=== PATIENT | female | born 1960 | race African-American/Black ===

== ENCOUNTER 2019-03-07 10:05 | Emergency (ER) | payer SELFPAY ==
[~2019-03-07] VITALS: Ht 165.1 cm; Wt 63.0 kg
[2019-03-07] MEDS ORDERED: MIDAZOLAM HCL 2 MG/2 ML VIAL IM ONE ×2 (12:15→16:15)
[2019-03-07] MEDS ORDERED: OLANZAPINE 10 MG/VIAL IM ONE (15:15)
[2019-03-07 17:39] LABS: BASOPHILS % 0.4 % (0.0-2.0); EOSINOPHILS % 0.1 % (0.0-5.0); HEMATOCRIT. 39.6 % (36.0-48.0); HEMOGLOBIN. 13.2 g/dL (12.0-16.0); MEAN CORPUSCULAR VOLUME 78.2 fL (81.0-99.0); MEAN PLATELET VOLUME 8.7 fl (7.4-10.4); MONOCYTES % 9.3 % (2.0-8.0); NEUTROPHILS % 76.2 % (40.0-76.0); PLATELET 285 x1000/uL (130-400); RED BLOOD CELL COUNT 5.07 mill/uL (4.2-5.4); RED CELL DISTRIBUTION WIDTH 13.3 % (11.6-14.6)
[2019-03-07 17:44] LABS: CHLORIDE 108 mEq/L (98-107)
[2019-03-07 17:50] LABS: ETHANOL BLOOD < 10 mg/dL
[2019-03-07 20:38] LABS: *BARBITURATES SCREEN URINE NEGATIVE (NEGATIVE)
[2019-03-07 20:39] LABS: *AMPHETAMINES SCREEN URINE NEGATIVE (NEGATIVE); *BENZODIAZEPINES SCREEN URINE PRESUMTIVE POSITIVE (NEGATIVE); *COCAINE SCREEN URINE NEGATIVE (NEGATIVE); METHADONE URINE SCREEN NEGATIVE (NEGATIVE); OPIATES URINE SCREEN NEGATIVE (NEGATIVE); PHENCYCLIDINE URINE SCREEN NEGATIVE (NEGATIVE)
[2019-03-07 20:40] LABS: CANNABINOID URINE SCREEN PRESUMTIVE POSITIVE (NEGATIVE)
[2019-03-08] MEDS ORDERED: LORAZEPAM 2MG/ML CPJ IM ONE ×2 (03:45→04:00)
[2019-03-08] MEDS ORDERED: LORAZEPAM 2MG/ML CPJ IM PRN (09:45)
[2019-03-08] MEDS ORDERED: OLANZAPINE 10 MG/VIAL IM ONE (14:30)
[2019-03-09] MEDS ORDERED: OLANZAPINE 10 MG/VIAL IM ONE (10:30)
[2019-03-09] MEDS ORDERED: LORAZEPAM 2MG/ML CPJ IM ONE (10:30)
[2019-03-09] MEDS ORDERED: POTASSIUM CHLORIDE 20MEQ TABLET SR PO ONE (10:30)
[2019-03-09 12:53] LABS: CLARITY URINE CLEAR (CLEAR); COLOR URINE DARK YELLOW (YELLOW); KETONES URINE 1+ (NEGATIVE); LEUKOCYTE ESTERASE URINE 1+ (NEGATIVE); NITRITE URINE NEGATIVE (NEGATIVE); OCCULT BLOOD URINE NEGATIVE (NEGATIVE); PROTEIN URINE TRACE (NEGATIVE); SPECIFIC GRAVITY URINE 1.024 (1.005-1.030); UROBILINOGEN URINE 0.2 E.U./dL (0.2-1.0)
[2019-03-10] MEDS ORDERED: POTASSIUM CHLORIDE 20MEQ TABLET SR PO NR (08:30)
[2019-03-10 13:36] VITALS: BP 158/88
== END 2019-03-10 15:08 ==
LOC: ER 10:05
DX: F29 Unspecified psychosis not due to a substance or known physiological condition (principal)
CPT/HCPCS: 36415; 70450; 80053; 80305; 80320; 84132; 85025; 93005; 96372; 99284; J2060; J2250; J3490; G0480